=== PATIENT | male | born 1960 | race Caucasian/White ===

== ENCOUNTER 2017-02-10 14:54 | Emergency (ER) | payer BC ==
[2017-02-10 15:11] VITALS: BP 103/74
[2017-02-10] MEDS ORDERED: NORMAL SALINE 1000 ML 1,000 ML IV ONE (15:41)
[2017-02-10] MEDS ORDERED: ONDANSETRON HCL INJ/PF 4 MG/2 ML SDV IV ONE (15:41)
[2017-02-10] MEDS ORDERED: ONDANSETRON ODT 4 MG TAB (6 TAB/DSPK) PO PRN (15:46)
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
== END 2017-02-10 16:38 | disposition home or self-care (01) ==
LOC: ER 14:54
DX: R53.83 Other fatigue (principal); M79.1 Myalgia; R11.2 Nausea with vomiting, unspecified; R53.1 Weakness; Z79.899 Other long term (current) drug therapy
CPT/HCPCS: 99284; 96361; 96374; J2405; J7030